=== PATIENT | male | born 1930 | race Caucasian/White ===

== ENCOUNTER 2018-11-07 12:16 | Inpatient (IN) | payer MEDICARE, OTHER ==
[~2018-11-07] VITALS: Ht 175.3 cm; Wt 84.4 kg
[2018-11-07 12:52] LABS: Urine WBC None Seen /hpf (0 - 3)
[2018-11-07 13:09] LABS: Urine Bacteria NONE SEEN /hpf (None Seen); Urine Blood Negative /uL (Negative); Urine Specific Gravity 1.003 (1.001-1.035)
[2018-11-07 14:19] LABS: Basophils # (auto) 0 uL; Basophils % (auto) 0.6 % (0.0-2.0); Eosinophils # (auto) 0 uL; Eosinophils % (auto) 0.3 % (0.0-7.0); Hematocrit 43.3 % (41.0-53.0); Hemoglobin 14.6 g/dL (13.5-17.5); Lymphocytes # (auto) 1.5 uL; Lymphocytes % (auto) 20.7 % (10.0-50.0); Mean Corpuscular Hemoglobin 31.8 pg (28.0-32.0); Mean Corpuscular Hgb Conc. 33.8 g/dL (32.0-36.0); Monocytes # (auto) 0.5 uL; Monocytes % (auto) 7.1 % (0.0-12.0); Neutrophils # (auto) 5.1 uL; Neutrophils % (auto) 71.3 % (37.0-80.0); Nucleated Red Blood Cells % 0.1 %; Platelet Count (auto) 237 10^3/uL (140-450); Red Cell Distribution Width 13.6 % (11.8-14.3); White Blood Cell 7.1 10^3/uL (4.4-10.8)
[2018-11-07 14:34] LABS: Albumin 3.9 g/dL (3.4-5.0); Calcium 9.2 mg/dL (8.5-10.1); Potassium 3.7 mmol/L (3.5-5.1)
[2018-11-07 14:37] LABS: BUN/Creatinine Ratio 12.1; Total Protein 7.6 g/dL (6.4-8.2)
[2018-11-07 14:38] LABS: INR 0.98 (0.9-1.15); Partial Thromboplastin Time 26.9 sec (23.78-33.04); Prothrombin Time 10.5 sec (9.27-12.13)
[2018-11-07] MEDS ORDERED: ACETAMINOPHEN 325 MG TAB PO ONE (15:15)
[2018-11-07] MEDS ORDERED: TRAM50TA2 PO (18:50)
[2018-11-07] MEDS ORDERED: [UNRECOGNIZED DRUG - CODE] PO (18:50)
[2018-11-07] MEDS ORDERED: GABA300C10 PO (18:50)
[2018-11-07] MEDS ORDERED: FINA5TAB4 PO (18:50)
[2018-11-07] MEDS ORDERED: ASPI81TA27 PO (18:50)
[2018-11-07] MEDS ORDERED: PRAV20TA3 PO (18:50)
[2018-11-07] MEDS ORDERED: TAMS0.4C36 PO (18:50)
[2018-11-07] MEDS ORDERED: TRIA0.1P11 TOP (18:52)
[2018-11-07] MEDS ORDERED: IPRATROPIUM BROM 0.5 MG/2.5ML INH SOL NEB PRN (19:15)
[2018-11-07] MEDS ORDERED: ALBUTEROL SULF 2.5 MG/0.5ML(0.5%) NEB SOLN NEB PRN (19:15)
[2018-11-07] MEDS ORDERED: NITROGLYCERIN 0.4 MG SL TAB SL PRN (19:15)
[2018-11-07] MEDS ORDERED: cloNIDine HCL 0.1 MG TAB PO PRN (19:15)
[2018-11-07] MEDS ORDERED: MORPHINE SULF INJ 2 MG/ML SYRINGE 1ML IV PRN (19:15)
[2018-11-07 20:01] VITALS: BP 150/97
--- NOTE | 2018-11-07 20:49 | NUR ---
Telemetry admit from ER [facility] admitted to Telemetry unit after SBAR received. Patient oriented to ARMINDA BOGGS RN primary RN, unit, room, bed, and unit policies regarding patient care and visiting hours. bed locked, in low position with 2x rails up. bed alarm on. Patient now on continuous telemetry monitoring, tele box #[id number] and telemetry reading on arrival to unit is nsr 99bpm. pt placed on 2L nasal cannula. pt alert and oriented x4. denies any pain. pt able to ambulate with cane in a shuffling motion. pt and daughter updated on plan of care. no additional questions or concerns at this time. pt call light in reach. will round q1hr and as needed.
[2018-11-07 21:52] VITALS: BP 158/88
--- NOTE | 2018-11-07 22:00 | NUR ---
pt encouraged to stay in bed whilst using urinal to decrease chance of fall. pt agreed, stating "i wont get out of bed without you here" referring to nurse. bed alarm is on.
[2018-11-07] MEDS: GABAPENTIN 300 MG CAP PO SCH (22:32)
[2018-11-07] MEDS: ATORVASTATIN 20 MG TAB PO SCH (22:32)
--- NOTE | 2018-11-07 23:52 | NUR ---
pt bed alarm sounded. upon entering room, pt awake and alert stating "i cant pee lying down, i gotta stand up". pt education reinforced about fall precaution and to use call light as needed, including when need to stand to urinate. pt agreed. back to bed without incident. bed alarm activated.
[2018-11-08 05:51] LABS: Basophils # (auto) 0.1 uL; Basophils % (auto) 0.9 % (0.0-2.0); Eosinophils # (auto) 0.2 uL; Eosinophils % (auto) 2.6 % (0.0-7.0); Hematocrit 42.1 % (41.0-53.0); Lymphocytes % (auto) 24.8 % (10.0-50.0); Mean Corpuscular Hemoglobin 31.6 pg (28.0-32.0); Mean Corpuscular Hgb Conc. 33.2 g/dL (32.0-36.0); Mean Corpuscular Volume 95.1 fL (80.0-100.0); Monocytes % (auto) 12.3 % (0.0-12.0); Neutrophils # (auto) 4.7 uL; Neutrophils % (auto) 59.4 % (37.0-80.0); Nucleated Red Blood Cells % 0.1 %; Platelet Count (auto) 217 10^3/uL (140-450); Red Blood Cells 4.43 10^6/uL (4.5-5.90); Red Cell Distribution Width 13.7 % (11.8-14.3)
[2018-11-08 05:56] VITALS: BP 141/60
[2018-11-08 06:08] LABS: Calcium 8.8 mg/dL (8.5-10.1); Potassium 3.6 mmol/L (3.5-5.1)
[2018-11-08 06:11] LABS: BUN/Creatinine Ratio 14.6
--- NOTE | 2018-11-08 07:25 | NUR ---
Opening Shift Note Assumed care of patient, asleep but easily aroused. No S/S of distress/SOB or pain. Will follow up with instructions once patient is awake. Will continue to monitor for changes Q1hr and PRN.
--- NOTE | 2018-11-08 08:10 | NUR ---
Patient awake sitting up in bed having breakfast.
--- NOTE | 2018-11-08 08:45 | NUR ---
Patient complained of dizziness, he stood up to use the urinal and began to feel lightheaded. Patient back in bed, call light within reach and patient encouraged not to get up without assistance. Vitals within normal range at this time.
[2018-11-08 09:10] VITALS: BP 145/73
--- NOTE | 2018-11-08 09:45 | NUR ---
Medications Patient refused his medications this morning. Stating that he does not take gabapentin anymore and the others he takes in the evenings.
[2018-11-08] MEDS ORDERED: FINASTERIDE 5 MG TAB PO SCH ×2 (10:00→18:00)
[2018-11-08] MEDS: GABAPENTIN 300 MG CAP PO SCH ×2 (10:00→21:49)
[2018-11-08] MEDS ORDERED: METOPROLOL SUCCINATE XL 50 MG TAB PO SCH (10:00)
--- NOTE | 2018-11-08 11:42 | NUR ---
RT note: PT awake and alert. No sob/resp.distress noted at this time. No PRN TX needed at this time. PT on 2 l/m NC with sats=96%, RR=14, HR=66, B/S clear bilateral. Informed PT if sob occurs to notify RN for PRN TX. PT understood.
[2018-11-08] MEDS ORDERED: traMADol HCL 50 MG TAB PO PRN (12:45)
[2018-11-08 13:00] VITALS: BP 122/83
[2018-11-08] MEDS ORDERED: OPTISON 3ml Vial for INJ IV ONE (16:51)
[2018-11-08 16:52] VITALS: BP 145/85
[2018-11-08] MEDS ORDERED: ASPirin 81 mg TAB PO SCH (18:15)
[2018-11-08] MEDS: TAMSULOSIN HYDROCHLORIDE 0.4 MG CAP PO SCH (18:20)
[2018-11-08] MEDS: ACETAMINOPHEN 325 MG TAB PO PRN ×2 (18:21→21:48)
--- NOTE | 2018-11-08 18:35 | NUR ---
Rounding Patient sitting up in bed uncomplaining. Care continues.
[2018-11-08] MEDS: ALBUTEROL SULF 2.5 MG/0.5ML(0.5%) NEB SOLN NEB SCH (19:33)
[2018-11-08] MEDS: BUDESONIDE (INHALATION) 0.5 MG/2 ML NEB NEB SCH (19:33)
--- NOTE | 2018-11-08 19:43 | NUR ---
Respiratory note: AFTER THE PT'S SCHEDULED MED NEB WAS GIVEN PT REQUESTED NOT TO BE WOKEN UP IF HE IS SLEEPING DURING HIS NEXT SCHEDULED TX DUE AT 0000.
--- NOTE | 2018-11-08 20:00 | NUR ---
assumed care of pt. awake and alert upon entering room. pt denied any pain, no distress noted or expressed. pt bed alarm on, educate pt on importance of calling for assistance upon ambulating as pt "cant use the urinal, i gotta stand up when i pee" referring to prostate issues causing frequency and flow issues. pt agreed. pt requests tylenol at bedtime "i take one every night and it seems to help me to get to sleep better". according to day shift RN, tylenol was pulled from pyxis at 1800 and opened, however, patient refused med for later time. pt thusly did not receive any tylenol. the tylenol was not wasted in the pyxis however, and administration record on OCT still shows it was administered. pt alert and oriented x4. charge nurse bucky made aware. will document accordingly. pt updated on plan of care. no additional questions at this time. call light in reach will round q1hr and prn.
--- NOTE | 2018-11-08 21:44 | NUR ---
administering tylenol 650mg po stat x1 per MAR and MD order.
[2018-11-08] MEDS: ATORVASTATIN 20 MG TAB PO SCH (21:49)
[2018-11-08] MEDS ORDERED: PATIENTS OWN MEDICATION PO SCH (22:00)
[2018-11-08 23:04] VITALS: BP 148/73
--- NOTE | 2018-11-09 00:18 | NUR ---
Respiratory note: PT REQUESTED NOT TO BE WOKEN UP IF SLEEPING. PT'S TREATMENT NOT GIVEN AT THIS TIME DUE TO HIM BEING ASLEEP. WILL CONT TO TREAT ORDERED.
[2018-11-09 05:52] VITALS: BP 129/78
[2018-11-09] MEDS: ALBUTEROL SULF 2.5 MG/0.5ML(0.5%) NEB SOLN NEB SCH ×4 (07:06→20:38)
[2018-11-09] MEDS: BUDESONIDE (INHALATION) 0.5 MG/2 ML NEB NEB SCH ×2 (07:07→20:38)
--- NOTE | 2018-11-09 07:20 | NUR ---
Opening Shift Note Assumed care of patient, awake and alert. No S/S of distress/SOB or pain. Instructed on POC and to call for assist PRN, will continue to monitor for changes Q1hr and PRN.
[2018-11-09 08:00] VITALS: BP 151/71
[2018-11-09 09:00] VITALS: BP 151/71
[2018-11-09] MEDS: GABAPENTIN 300 MG CAP PO SCH ×2 (09:51→21:21)
[2018-11-09] MEDS ORDERED: METOPROLOL SUCCINATE XL 50 MG TAB PO SCH ×2 (10:00)
[2018-11-09 15:38] VITALS: BP 139/75
--- NOTE | 2018-11-09 16:17 | NUR ---
Orthostatic vitals Lying: BP 153/78 HR 86 Sitting: BP 151/85 HR 83 Standing:BP 144/91 HR 91 Addendum: 11/09/18 at 1700 by SULAIMAN GLASS RN No dizziness or lightheadedness reported from patient
[2018-11-09 17:09] VITALS: BP 121/79
[2018-11-09] MEDS: FINASTERIDE 5 MG TAB PO SCH (17:14)
[2018-11-09] MEDS: TAMSULOSIN HYDROCHLORIDE 0.4 MG CAP PO SCH (17:14)
[2018-11-09] MEDS: METOPROLOL SUCCINATE XL 50 MG TAB PO SCH (17:15)
[2018-11-09] MEDS ORDERED: ASPirin 81 mg TAB PO SCH (18:00)
--- NOTE | 2018-11-09 19:40 | NUR ---
Opening Shift Note Assumed care of patient, awake and alert, oriented x 4. On oxygen at 2L via NC with even and unlabored respirations. No S/S of distress/SOB or pain. Bed low locked position with side rails up x 2 and call light within reach, bed alarm on. patient turns independently in bed. Instructed on POC and to call for assist PRN, will continue to monitor for changes Q1hr and PRN.
[2018-11-09] MEDS ORDERED: LORazepam 2MG/ML-1ML VIAL IV PRN (20:15)
[2018-11-09] MEDS: ATORVASTATIN 20 MG TAB PO SCH (21:21)
[2018-11-09 23:43] VITALS: BP 144/80
[2018-11-10] MEDS: ACETAMINOPHEN 325 MG TAB PO PRN ×2 (00:38→20:27)
[2018-11-10] MEDS: ALBUTEROL SULF 2.5 MG/0.5ML(0.5%) NEB SOLN NEB SCH ×3 (00:51→12:10)
--- NOTE | 2018-11-10 00:52 | NUR ---
RT NOTE PT ASKED NOT TO BE WOKEN FOR THIS TX IF SLEEPING. PT SLEEPING. PT SEEMS TO BE RESTING COMFORTABLY. NO SIGNS OF RESPIRATORY DISTRESS NOTED BY RT. TX HELD PER PT REQUEST.
[2018-11-10 05:59] VITALS: BP 137/86
[2018-11-10] MEDS: BUDESONIDE (INHALATION) 0.5 MG/2 ML NEB NEB SCH (06:19)
--- NOTE | 2018-11-10 07:01 | NUR ---
Closing Note patient resting in bed with even and unlabored respirations, oxygen 2L via NC, no s/s of distress. Endorsed care to day shift RN.
[2018-11-10] MEDS ORDERED: NALOXONE HCL 0.4 MG/ML VIAL IV ONE (07:30)
[2018-11-10] MEDS ORDERED: MIDAZOLAM HCL 1MG/1ML-2 ML VIAL IV ONE (07:30)
[2018-11-10] MEDS ORDERED: LIDOCAINE VISCOUS 2% 15ML UD PO ONE (07:30)
[2018-11-10] MEDS ORDERED: FLUMAZENIL 0.1 MG/ML INJ 10ML MDV IV ONE (07:30)
[2018-11-10] MEDS ORDERED: fentaNYL CITRATE 100 MCG/2 ML VL IV ONE (07:30)
--- NOTE | 2018-11-10 07:40 | NUR ---
OFF UNIT/IV LEAKING RECEIVED PHONE CALL FROM [employer] REQUESTING PATIENT BE BROUGHT DOWN STAIRS FOR PROCEDURE. PATIENTS LAC IV LEAKING WHEN FLUSHING/CHECKING PATENCY. INFORMED [employer] RN, ALEKSANDR, STATING THEY CAN START NEW IV IN [employer] IF NEEDED. SURGICAL CHECKLIST REVIEWED AND COMPLETED. CONSENTS PREVIOUSLY SIGNED BY PATIENT. CALLED PATIENTS DAUGHTER, APARNA, TO INFORM OF PROCEDURE. AWARE. PT BROUGHT DOWN TO [employer] VIA GURNEY. NO DISTRESS NOTED AT TIME OF DEPARTURE.
[2018-11-10 08:43] VITALS: BP 127/78
--- NOTE | 2018-11-10 09:01 | NUR ---
RETURNED TO UNIT PT RETURNED TO UNIT FROM [facility]. PT DROWSY, BUT ABLE TO ANSWER QUESTIONS APPROPRIATELY AND FOLLOW COMMANDS. CALLED PATIENTS DAUGHTER, APARNA, TO INFORM OF COMPLETION OF PROCEDURE. MESSAGE LEFT FOR CALL BACK IF NEEDED.
[2018-11-10] MEDS: GABAPENTIN 300 MG CAP PO SCH ×2 (09:40→22:00)
--- NOTE | 2018-11-10 09:41 | NUR ---
MEDICATION REFUSED SCHEDULED GABAPENTIN REFUSED. PT STATING HE HAS NOT TAKEN GABAPENTIN FOR MONTHS.
--- NOTE | 2018-11-10 10:36 | NUR ---
OFF UNIT/MRI PT TAKEN OFF UNIT VIA WC FOR MRI. NO DISTRESS NOTED AT TIME OF DEPARTURE.
--- NOTE | 2018-11-10 11:27 | NUR ---
RETURN TO UNIT PT RETURNED TO UNIT FROM MRI. PT CONTINUES TO DENY ANY DISTRESS. PT STATING HE IS READY TO GO HOME. RE-EDUCATED PT ON IMPORTANCE OF COMPLETING REMAINING TEST, INCLUDING: EEG. PT VERBALIZED UNDERSTANDING.
--- NOTE | 2018-11-10 12:45 | NUR ---
EEG EEG IN PROCESS.
[2018-11-10 12:48] VITALS: BP 139/85
--- NOTE | 2018-11-10 13:02 | NUR ---
EEG COMPLETED AT BEDSIDE. AAYUSH PATEL
--- NOTE | 2018-11-10 15:10 | NUR ---
AT BEDSIDE DR. SIDHU AT BEDSIDE DISCUSSING POC WITH PT.
--- NOTE | 2018-11-10 15:45 | NUR ---
OXYGEN SATURATIONS O2 SATURATIONS CHECKED ON RA, PT SATURATING BETWEEN 93-94%. NO SOB/DISTRESS NOTED.
[2018-11-10] MEDS ORDERED: CLOPIDOGREL BISULFATE 75 MG TAB PO ONE (16:00)
[2018-11-10 17:00] VITALS: BP 133/85
[2018-11-10] MEDS: TAMSULOSIN HYDROCHLORIDE 0.4 MG CAP PO SCH (17:16)
[2018-11-10] MEDS: METOPROLOL SUCCINATE XL 50 MG TAB PO SCH (17:16)
[2018-11-10] MEDS: FINASTERIDE 5 MG TAB PO SCH (17:16)
--- NOTE | 2018-11-10 18:50 | NUR ---
ROUNDS PT SITTING UP IN BED, DENIES ANY PAIN OR DISTRESS AT THIS TIME. PT RE-ENCOURAGED TO CONTACT STAFF FOR PRN ASSISTANCE. CALL LIGHT WITHIN REACH. BED ALARM IS ON.
--- NOTE | 2018-11-10 19:45 | NUR ---
Opening Shift Note Assumed care of patient, awake and alert, oriented x 4. On room air with even and unlabored respirations. No S/S of distress/SOB or pain. Bed low locked position with side rails up x 2 and call light within reach, bed alarm on. patient turns independently in bed. Instructed on POC and to call for assist PRN, will continue to monitor for changes Q1hr and PRN.
--- NOTE | 2018-11-10 19:48 | NUR ---
Respiratory note: NO PRN TX GIVEN AT THIS TIME, NOT INDICATED. PT DENIES SOB. SPO2 93% ON R/A, HR 75, RR 16. NO DISTRESS NOTED.
[2018-11-10 22:00] VITALS: BP 144/88
[2018-11-10] MEDS: ATORVASTATIN 20 MG TAB PO SCH (23:52)
[2018-11-11 03:19] VITALS: BP 144/88
[2018-11-11 05:49] VITALS: BP 119/68
--- NOTE | 2018-11-11 07:03 | NUR ---
Closing Note patient resting in bed with even and unlabored respirations. no s/s of distress. Endorsed care to day shift RN.
[2018-11-11 08:00] VITALS: BP 147/91
[2018-11-11 09:00] VITALS: BP 147/91
--- NOTE | 2018-11-11 09:30 | NUR ---
ORTHOSTATIC VITAL SIGNS COMPLETED PER DR. JUAREZ'S ORDERS SITTING - 130/85 STANDING - 135/73
[2018-11-11] MEDS: GABAPENTIN 300 MG CAP PO SCH (10:00)
[2018-11-11] MEDS ORDERED: CLOPIDOGREL BISULFATE 75 MG TAB PO SCH (10:00)
[2018-11-11] MEDS ORDERED: CLOP75TA28 PO (10:48)
[2018-11-11] MEDS ORDERED: MET5XLT PO (10:57)
--- NOTE | 2018-11-11 11:35 | NUR ---
SUTURES REMOVED FROM RIGHT SIDE OF NOSE. PER DR. SIDHU'S ORDERS PATIENT TOLERATED WELL, NO PAIN REPORTED. INCISION WELL APPROXIMATED.
[2018-11-11 11:59] VITALS: BP 128/76
--- NOTE | 2018-11-11 14:38 | NUR ---
Discharge instructions given as ordered. Encourage to follow up with PMD as instructed. All questions and concerns addressed. Patient verbalized understanding. IV removed with catheter intact, pressure dressing applied. Telemetry unit returned to [facility]. Patient taken to vehicle via wheelchair with all personal belongings, accompanied by staff and family member. No distress noted at time of departure.
== END 2018-11-11 14:38 | disposition home or self-care (01) | DRG 69 ==
LOC: ER 12:20 → TELE 18:44 → TELE-WESTW 20:00
PROVIDERS: ADMIT Nurse Practitioner Acute Care; ATTEND Internal Medicine
DX: G45.9 Transient cerebral ischemic attack, unspecified (principal); Q21.1 Atrial septal defect; I10 Essential (primary) hypertension; R29.6 Repeated falls; N40.0 Benign prostatic hyperplasia without lower urinary tract symptoms; G62.9 Polyneuropathy, unspecified; M19.90 Unspecified osteoarthritis, unspecified site; I48.0 Paroxysmal atrial fibrillation; E78.5 Hyperlipidemia, unspecified; I25.10 Atherosclerotic heart disease of native coronary artery without angina pectoris; H91.90 Unspecified hearing loss, unspecified ear; E66.3 Overweight; E86.0 Dehydration; F17.200 Nicotine dependence, unspecified, uncomplicated; I35.1 Nonrheumatic aortic (valve) insufficiency; I70.0 Atherosclerosis of aorta; I77.810 Thoracic aortic ectasia; Z79.02 Long term (current) use of antithrombotics/antiplatelets; Z79.1 Long term (current) use of non-steroidal anti-inflammatories (NSAID); Z79.82 Long term (current) use of aspirin; Z79.899 Other long term (current) drug therapy; Z85.828 Personal history of other malignant neoplasm of skin; Z86.73 Personal history of transient ischemic attack (TIA), and cerebral infarction without residual deficits; Z82.49 Family history of ischemic heart disease and other diseases of the circulatory system; Z68.27 Body mass index [BMI] 27.0-27.9, adult
CPT/HCPCS: 36415; 70450; 70551; 71045; 80048; 80053; 81001; 83735; 84484; 85025; 85610; 85730; 93005; 93306; 93312; 93886; 94640; 94761; 95819; G0378; J2250; Q9956

== ENCOUNTER 2018-11-16 11:34 | Emergency (ER) | payer MEDICARE ==
[~2018-11-16] VITALS: Ht 175.3 cm; Wt 81.6 kg
[~2018-11-16 11:34] MED LIST: CLOP75TA28 PO; FINA5TAB4 PO; GABA300C10 PO; MET5XLT PO; PRAV20TA3 PO; TAMS0.4C36 PO; TRAM50TA2 PO; TRIA0.1P11 TOP; [UNRECOGNIZED DRUG - CODE] PO
[2018-11-16 11:49] VITALS: BP 148/99
== END 2018-11-16 15:21 | disposition left against medical advice (07) ==
LOC: ER 11:34
DX: M54.5 Low back pain (principal); Z53.21 Procedure and treatment not carried out due to patient leaving prior to being seen by health care provider
CPT/HCPCS: 72100; 93005